=== PATIENT | male | born 1970 | race Caucasian/White ===

== ENCOUNTER → 2018-08-06 | Day surgery (SDC) | payer OTHER ==
--- NOTE | 2018-08-03 09:34 | Diagnostic Imaging Report ---
PROCEDURE: X-RAY CHEST, TWO VIEWS COMPARISON: None. INDICATIONS: PREOPERATIVE CHEST XRAY FOR VASECTOMY FINDINGS: Lungs are well-inflated. No focal consolidation, pleural effusion, or pneumothorax. Cardiomediastinal contour and pulmonary vasculature are within normal limits. No acute osseous abnormality. CONCLUSION: No acute thoracic abnormality. Dictated by: Skyler Bhatti M.D. on 08/03/2018 at 9:42 Electronically approved by: Skyler Bhatti M.D. on 08/03/2018 at 9:42
[2018-08-03 09:45] LABS: BASOPHILS # (AUTO) 0.1 (0.0-0.1); BASOPHILS % 0.6 % (0.0-1.0); EOSINOPHILS # (AUTO) 0.2 (0.0-0.4); EOSINOPHILS % 2.9 % (0.0-6.0); HEMATOCRIT 44.8 % (38.2-49.6); LYMPHOCYTES # (AUTO) 2.1 (1.0-3.2); LYMPHOCYTES % 25.4 % (18.0-39.1); MEAN CORPUSCULAR HEMOGLOBIN 26.1 pg (28-32); MEAN CORPUSCULAR HGB CONC 31.3 g/dL (31-35); MEAN CORPUSCULAR VOLUME 83.6 fL (81-99); MONOCYTES # (AUTO) 0.6 (0.2-0.8); MONOCYTES % 7.5 % (4.4-11.3); NEUTROPHILS # (AUTO) 5.2 (2.1-6.9); NEUTROPHILS % 63.1 % (38.7-80.0); PLATELET COUNT 287 x10e3/uL (140-360); RED BLOOD COUNT 5.36 x10e6/uL (4.3-5.7); RED CELL DISTRIBUTION WIDTH 14.9 % (11.7-14.4)
[2018-08-03 10:10] LABS: INR 1.08
[~2018-08-06] MED LIST: ASPIR 8181 MG PO; BUPIVACAINE 0.25% 30ML SDV INJ ONE; CEFTRIAXONE SOD 1 GM VIAL ONE; DEXAMETHASONE SOD PHOS INJ 4 MG/ML VIAL ONE; EFFIENT10 MG PO; FENTANYL CITRATE/PF 100MCG/2 ML INJ ONE; HYDROCODON-ACE1 EA12; LEXAPRO PO; LIDOCAINE HCL 2% LOCAL INJ 5 ML SDV VIAL INJ ONE; MIDAZOLAM HCL 2 MG/2 ML VIAL ONE; ONDANSETRON HCL INJ 2 MG/ML VIAL ONE; PLAVIX75 MG PO; PROPOFOL IV EMULSION 10 MG/ML 20 ML VIAL ONE; SEVOFLURANE INHAL SOLN 250 ML PEN BTL ONE; XARELTO PO; XARELTO15 MG PO; XARELTO20 MG PO
[2018-08-06 10:20] VITALS: BP 130/92
--- NOTE | 2018-08-06 10:34 | Operative Report ---
DATE OF PROCEDURE: August 06, 2018 PREOPERATIVE DIAGNOSIS: Desire for permanent sterilization. POSTOPERATIVE DIAGNOSIS: Desire for permanent sterilization. OPERATIVE PROCEDURE PERFORMED: Bilateral segmental vasectomy. ANESTHESIA: General anesthesia. ESTIMATED BLOOD LOSS: Minimal. INDICATIONS: Mr. Ben Redd is a 47-year-old gentleman with a prior history of pulmonary emboli and left DVT, who now presents for bilateral segment vasectomy for permanent sterilization. PROCEDURE IN DETAIL: Patient was brought into the operating room and placed in the supine position. After administration of general anesthesia, was prepped and draped in the usual sterile fashion. A small incision was made in the right hemiscrotum, and the vas was dissected from the surrounding structures. The vas was clipped proximally and distally with titanium clips and an intervening section of approximately 1 cm in length was removed. The cut edges of the vas was fulgurated using electrocautery device, and allowed to retract back into the scrotum. Prior to retraction, both edges were infiltrated with 0.25% plain Marcaine. The skin was closed with a figure-of-8 of 0 chromic suture. A similar procedure was performed on the contralateral side. Again, a section of vas 1 cm in length was removed. Titanium clips were placed proximally and distally, and the cut edges of the clips fulgurated using the electrocautery device. Again a figure-of-8 0 chromic suture was placed in the skin. The patient was transferred to a bed and anesthesia was reversed. He was transferred to the postanesthesia care unit in good condition. Of note, the needle and instrument count were correct at the conclusion of the case. Job#: [id number] OUSMANE
--- OUTSIDE RECORDS SUMMARY | 2018-08-11 12:56 | XMS REPORT | Clinical Summary ---
Author Author Connor [facility] Organization [facility] Address Unknown Phone Unavailable Care Team Providers Care Video News Editor Name Role Phone Ike Vidal MD PCP Allergies Active Allergy Reactions Severity Noted Date Comments Latex Rash Low 08/12/2016 Sulfa (Sulfonamide Hives Medium 08/12/2016 Antibiotics) Current Medications Prescription Sig. Disp. Refills Start End Date Status Date clopidogrel (PLAVIX) 75 TAKE 1 TABLET BY MOUTH 90 tablet 0 09/16/20 Active mg tablet EVERY DAY 17 diazePAM (VALIUM) 5 MG TK 1 - 2 TS PO BID PRN 1 02/17/20 Active tablet FOR 30 DAYS 18 escitalopram (LEXAPRO) 10 04/13/20 Active MG tablet 18 temazepam (RESTORIL) 15 TAKE 1 C PO HS PRN 2 04/09/20 Active mg capsule 18 clopidogrel (PLAVIX) 75 Take 75 mg by mouth every 09/16/20 Discontin mg tablet evening. 17 ued dexlansoprazole Take 60 mg by mouth 08/21/20 Discontin (DEXILANT) 60 mg capsule daily. 17 ued rivaroxaban (XARELTO) 20 Take 20 mg by mouth 2 04/18/20 Discontin mg tablet (two) times a day. 1 18 ued tablet 2x a day clopidogrel (PLAVIX) 75 Take 1 tablet (75 mg 90 tablet 3 09/16/20 12/15/19 mg tabletIndications: total) by mouth daily for 17 18 May-Thurner syndrome 90 days. rivaroxaban (XARELTO) 20 Take 20 mg by mouth 05/04/20 Discontin mg tablet daily. 18 ued traMADol (ULTRAM) 50 mg Take 1 tablet (50 mg 30 tablet 0 04/18/20 04/25/20 tablet total) by mouth every 6 18 18 (six) hours as needed for moderate pain for up to 7 days. docusate sodium (COLACE) Take 1 capsule (100 mg 60 capsule 0 04/18/20 05/18/20 100 MG capsule total) by mouth 2 (two) 18 18 times a day as needed for constipation for up to 30 days. rivaroxaban (XARELTO) 20 Take 1 tablet (20 mg 30 tablet 6 05/04/20 06/03/20 mg tablet total) by mouth daily for 18 18 30 days. Active Problems Problem Noted Date Anticoagulated on heparin 04/17/2018 s/p BLE venogram, bilat iliac+IVC balloon angioplasty, angiojet 04/17/2018 At high risk for bleeding 04/16/2018 Thrombosis of R Iliac Vein stents 04/15/2018 s/p RLE venogram and thrombolysis with EKOS 04/15/2018 Chronic anticoagulation with Xarelto 04/15/2018 Chronic anemia 04/15/2018 Edema of right lower extremity 04/13/2018 Ventricular ectopy 07/03/2017 Pain and swelling of right lower leg 01/30/2017 Postural dizziness with presyncope 11/18/2016 Chest pain 11/18/2016 May-Thurner syndrome 08/12/2016 Last Assessment & Plan: s/p angiojet R CIV and EIV w/ thromb; 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 CTA reviewed by me looks good with good flow and patent stents. Plan for continue normal activity. Refill of tramadol given. RTC in 1 year with arterial US. Pain of left lower extremity 08/12/2016 Atherosclerosis of arteries of extremities (HCC) 08/12/2016 Post-phlebitic syndrome 10/27/2013 Overview: B iliac vein and IVC recanalization and stenting 2015 Encounters Date Type Specialty Care Team Description 07/07/2018 Telephone Cardiovascular Tiffany Garcia RN 05/04/2018 Office Visit Cardiovascular Dane Nieves MD Acute deep vein thrombosis (DVT) of distal vein of both lower extremities (Primary Dx) 05/04/2018 Orders Only Cardiovascular Tiffany Garcia RN 05/01/2018 Refill Cardiovascular Lenin Reyes MD 04/17/2018 Procedure Pass Cardiothoracic Surgery 04/17/2018 Surgery Cardiothoracic Surgery Dane Nieves MD Bilateral lower extremity venogram, bilateral iliac and IVC balloon angioplast, angiojet 04/16/2018 Anesthesia Cardiothoracic Surgery Paula Pardo Event 04/15/2018 Anesthesia Cardiothoracic Surgery Reba Steen MD Event 04/15/2018 Procedure Pass Cardiothoracic Surgery 04/15/2018 Surgery Cardiothoracic Surgery Dane Nieves MD RIGHT LOWER EXTREMITY VENOGRAM 04/13/2018 Hospital Cardiology Dane Nieves MD - Encounter 04/18/2018 04/13/2018 Office Visit Cardiovascular Dane Nieves MD Venous thrombosis (Primary Dx) 04/13/2018 Telephone Cardiovascular Carlos Hermosillo 04/05/2018 Refill Cardiovascular Lenin Reyes MD 09/16/2017 Orders Only Cardiovascular Natalie Michael RN May-Thurner syndrome (Primary Dx) 09/16/2017 Refill Cardiovascular Lenin Reyes MD 09/06/2017 Refill Cardiovascular Lenin Reyes MD 08/21/2017 Office Visit Cardiovascular Lenin Reyes MD May-Thurner syndrome (Primary Dx) 08/21/2017 [facility] Radiology Lenin Reyes MD Chronic deep vein Encounter thrombosis (DVT) of proximal vein of both lower extremities 08/21/2017 Orders Only Cardiovascular Natalie Michael RN Chronic deep vein thrombosis (DVT) of non-extremity vein (Primary Dx) after 08/05/2017 Family History Medical History Relation Name Comments Hypertension Father Diabetes Mother Relation Name Status Comments Father Mother Social History Tobacco Use Types Packs/Day Years Used Date Never Smoker Smokeless Tobacco: Never Used Alcohol Use Drinks/Week oz/Week Comments No Sex Assigned at Date Recorded Not on file Last Filed Vital Signs Vital Sign Reading Time Taken Blood Pressure 138/89 05/04/2018 10:49 AM CDT Pulse 69 05/04/2018 10:49 AM CDT Temperature 36.8 C (98.3 F) 05/04/2018 10:49 AM CDT Respiratory Rate 17 05/04/2018 10:49 AM CDT Oxygen Saturation 97% 04/18/2018 12:11 PM CDT Inhaled Oxygen - - Concentration Weight 67.6 kg (149 lb) 05/04/2018 10:49 AM CDT Height 167.6 cm (5' 6") 05/04/2018 10:49 AM CDT Body Mass Index 24.05 05/04/2018 10:49 AM CDT Plan of Treatment Date Type Specialty Care Team Description 05/03/2019 Office Visit Cardiovascular Dane Nieves MD [address] [address] Health Maintenance Due Date Last Done Comments INFLUENZA VACCINE 05/27/2018 Implants Implanted Type Area External Grinder Tool Device Expiration Model / Identifier Date Serial / Lot [place] Large Diameter [employer]iance - IPM BARD PERIPHERAL [id number] / [id number] [employer]PL[employer] / Implanted: Qty: 3 on 04/17/2018 by DEVICES Dane Nieves MD Catheter [employer]iance 8fr 75x4cm 16mm [place] Surgical N/A: N/A BARD PERIPHERAL [id number] / - [id number] Implants; VASCULAR / Implanted: 01/31/2017 (Quantity not Expanders; on file) Extenders; Surgical Wires Catheter [employer] 8fr 75x4cm 16mm [place] Surgical N/A: N/A BARD PERIPHERAL [id number] / - [id number] Implants; VASCULAR / Implanted: 01/31/2017 (Quantity not Expanders; on file) Extenders; Surgical Wires Catheter [employer] Compliance 4x75cm 12mm [employer] - Surgical N/A: N/A BARD PERIPHERAL 01/24/2021 [id number] / [id number] Implants; VASCULAR / Implanted: 04/17/2018 (Quantity not Expanders; [id number] on file) Extenders; Surgical Wires Catheter [employer] Compliance [place] 7fr [id number] Surgical N/A: N/A [facility] PERIPHERAL [id number] 12mm 0.035in H-Pres - [id number] Implants; INTERVENTION [id number] / Implanted: 04/17/2018 (Quantity not Expanders; VASCULAR HARSHIL / on file) Extenders; Surgical Wires Device Endovasclr Intlgnt Drug Delv [id number] Cath 5.2fr [id number] [employer] / Implanted: Qty: 2 on 04/15/2018 by / Dane Nieves MD Procedures Procedure Name Priority Date/Time Associated Diagnosis Comments ECG 12-LEAD Routine 04/18/2018 Results for this 7:49 AM CDT procedure are in the results section. CBC HEMOGRAM Routine 04/18/2018 Results for this 3:41 AM CDT procedure are in the results section. ZZESTIMATED GFR Routine 04/18/2018 Results for this 12:00 AM CDT procedure are in the results section. PHOSPHORUS LEVEL Routine 04/18/2018 Results for this 12:00 AM CDT procedure are in the results section. IONIZED CALCIUM Routine 04/18/2018 Results for this 12:00 AM CDT procedure are in the results section. MAGNESIUM LEVEL Routine 04/18/2018 Results for this 12:00 AM CDT procedure are in the results section. BASIC METABOLIC PANEL Routine 04/18/2018 Results for this 12:00 AM CDT procedure are in the results section. PARTIAL THROMBOPLASTIN Timed 04/17/2018 Results for this TIME (PTT) 11:20 PM CDT procedure are in the results section. PARTIAL THROMBOPLASTIN Routine 04/17/2018 Results for this TIME (PTT) 4:59 PM CDT procedure are in the results section. ZZESTIMATED GFR Routine 04/17/2018 Results for this 2:27 PM CDT procedure are in the results section. MAGNESIUM LEVEL Routine 04/17/2018 Results for this 2:27 PM CDT procedure are in the results section. PHOSPHORUS LEVEL Routine 04/17/2018 Results for this 2:27 PM CDT procedure are in the results section. BASIC METABOLIC PANEL Routine 04/17/2018 Results for this 2:27 PM CDT procedure are in the results section. ZZESTIMATED GFR Routine 04/17/2018 Results for this 12:47 PM CDT procedure are in the results section. MAGNESIUM LEVEL Routine 04/17/2018 Results for this 12:47 PM CDT procedure are in the results section. PHOSPHORUS LEVEL Routine 04/17/2018 Results for this 12:47 PM CDT procedure are in the results section. BASIC METABOLIC PANEL Routine 04/17/2018 Results for this 12:47 PM CDT procedure are in the results section. POC GLUCOSE Routine 04/17/2018 Results for this 12:22 PM CDT procedure are in the results section. XR CHEST 1 VW PORTABLE Routine 04/17/2018 Results for this 10:49 AM CDT procedure are in the results section. HEMOGLOBIN & HEMATOCRIT Routine 04/17/2018 Results for this 10:39 AM CDT procedure are in the results section. POC GLUCOSE Routine 04/17/2018 Results for this 10:20 AM CDT procedure are in the results section. IN AN ELECTIVE Routine 04/17/2018 ENDOTRACHEAL AIRWAY 8:01 AM CDT Procedure Note - Kimo Correa, PIPE ORGAN TECHNICIAN - 04/17/2018 8:01 AM CDT Airway Date/Time: 04/17/2018 7:45 AM Performed by: KIMO CORREA Authorized by: MEHDI MYERS Location: OR Urgency: Elective Difficult Airway: No Anesthesio logist: MEHDI MYERS Resident/C RNA/AA: KIMO CORREA Other Anesthesia Staff: JASMIN RAND Performed by: other anesthesia staff Preoxygena mia with 100% O2: Yes Mask Ventilatio n: Easy mask Final Airway Type: Endotrache al airway Final Endotrache al Airway: ETT Cuffed: Yes Technique Used: Direct laryngosco py Devices/Me thods Used in Placement: Intubatin g stylet Insertion Site: Oral Blade Type: Garcia Laryngosco pe Blade/Vide olaryngosc ope Blade Size: 2 ETT Size (mm): 8.0 Cuff at minimum occlusion pressure: Yes Measured from: Lips ETT to Lips (cm): 23 Placement Verified by: CO2 detection, direct visualizat ion and equal breath sounds Laryngosco pic view: Grade I - full view of glottis Rapid Sequence Induction (RSI): No Modified RSI: No Number of Attempts at Approach: 1 POC GLUCOSE Routine 04/17/2018 Results for this 7:22 AM CDT procedure are in the results section. ECG 12-LEAD Routine 04/17/2018 Results for this 5:55 AM CDT procedure are in the results section. PARTIAL THROMBOPLASTIN Routine 04/17/2018 Results for this TIME (PTT) 4:05 AM CDT procedure are in the results section. PROTHROMBIN TIME WITH INR Routine 04/17/2018 Results for this 4:05 AM CDT procedure are in the results section. FIBRINOGEN Routine 04/17/2018 Results for this 4:05 AM CDT procedure are in the results section. POC GLUCOSE Routine 04/17/2018 Results for this 3:40 AM CDT procedure are in the results section. FIBRINOGEN Routine 04/17/2018 Results for this 12:15 AM CDT procedure are in the results section. PARTIAL THROMBOPLASTIN Routine 04/17/2018 Results for this TIME (PTT) 12:15 AM CDT procedure are in the results section. PROTHROMBIN TIME WITH INR Routine 04/17/2018 Results for this 12:15 AM CDT procedure are in the results section. HC COMPLETE BLD COUNT Routine 04/17/2018 Results for this W/AUTO DIFF 12:15 AM CDT procedure are in the results section. PHOSPHORUS LEVEL Routine 04/17/2018 Results for this 12:10 AM CDT procedure are in the results section. IONIZED CALCIUM Routine 04/17/2018 Results for this 12:10 AM CDT procedure are in the results section. MAGNESIUM LEVEL Routine 04/17/2018 Results for this 12:10 AM CDT procedure are in the results section. ZZESTIMATED GFR Routine 04/17/2018 Results for this 12:10 AM CDT procedure are in the results section. BASIC METABOLIC PANEL Routine 04/17/2018 Results for this 12:10 AM CDT procedure are in the results section. POC GLUCOSE Routine 04/16/2018 Results for this 11:40 PM CDT procedure are in the results section. POC GLUCOSE Routine 04/16/2018 Results for this 7:42 PM CDT procedure are in the results section. ZZESTIMATED GFR Routine 04/16/2018 Results for this 5:06 PM CDT procedure are in the results section. MAGNESIUM LEVEL Routine 04/16/2018 Results for this 5:06 PM CDT procedure are in the results section. PHOSPHORUS LEVEL Routine 04/16/2018 Results for this 5:06 PM CDT procedure are in the results section. BASIC METABOLIC PANEL Routine 04/16/2018 Results for this 5:06 PM CDT procedure are in the results section. PARTIAL THROMBOPLASTIN Routine 04/16/2018 Results for this TIME (PTT) 5:06 PM CDT procedure are in the results section. PROTHROMBIN TIME WITH INR Routine 04/16/2018 Results for this 5:06 PM CDT procedure are in the results section. FIBRINOGEN Routine 04/16/2018 Results for this 5:06 PM CDT procedure are in the results section. HC COMPLETE BLD COUNT Routine 04/16/2018 Results for this W/AUTO DIFF 5:06 PM CDT procedure are in the results section. POC GLUCOSE Routine 04/16/2018 Results for this 3:57 PM CDT procedure are in the results section. FIBRINOGEN Routine 04/16/2018 Results for this 1:37 PM CDT procedure are in the results section. PARTIAL THROMBOPLASTIN Routine 04/16/2018 Results for this TIME (PTT) 1:37 PM CDT procedure are in the results section. PROTHROMBIN TIME WITH INR Routine 04/16/2018 Results for this 1:37 PM CDT procedure are in the results section. HC COMPLETE BLD COUNT Timed 04/16/2018 Results for this W/AUTO DIFF 1:35 PM CDT procedure are in the results section. POC GLUCOSE Routine 04/16/2018 Results for this 12:25 PM CDT procedure are in the results section. FIBRINOGEN Timed 04/16/2018 Results for this 7:34 AM CDT procedure are in the results section. POC GLUCOSE Routine 04/16/2018 Results for this 7:30 AM CDT procedure are in the results section. ECG 12-LEAD Routine 04/16/2018 Results for this 6:45 AM CDT procedure are in the results section. XR CHEST 1 VW PORTABLE Routine 04/16/2018 Results for this 6:36 AM CDT procedure are in the results section. POC GLUCOSE Routine 04/16/2018 Results for this 3:58 AM CDT procedure are in the results section. FIBRINOGEN Routine 04/16/2018 Results for this 1:00 AM CDT procedure are in the results section. ZZESTIMATED GFR Routine 04/16/2018 Results for this 1:00 AM CDT procedure are in the results section. PHOSPHORUS LEVEL Routine 04/16/2018 Results for this 1:00 AM CDT procedure are in the results section. MAGNESIUM LEVEL Routine 04/16/2018 Results for this 1:00 AM CDT procedure are in the results section. BASIC METABOLIC PANEL Routine 04/16/2018 Results for this 1:00 AM CDT procedure are in the results section. HC COMPLETE BLD COUNT Routine 04/16/2018 Results for this W/AUTO DIFF 1:00 AM CDT procedure are in the results section. IONIZED CALCIUM Routine 04/16/2018 Results for this 1:00 AM CDT procedure are in the results section. PARTIAL THROMBOPLASTIN Routine 04/16/2018 Results for this TIME (PTT) 1:00 AM CDT procedure are in the results section. POC GLUCOSE Routine 04/15/2018 Results for this 11:57 PM CDT procedure are in the results section. XR CHEST 1 VW PORTABLE Routine 04/15/2018 Results for this 8:07 PM CDT procedure are in the results section. POC GLUCOSE Routine 04/15/2018 Results for this 7:54 PM CDT procedure are in the results section. PARTIAL THROMBOPLASTIN Timed 04/15/2018 Results for this TIME (PTT) 7:30 PM CDT procedure are in the results section. PROTHROMBIN TIME WITH INR Timed 04/15/2018 Results for this 7:30 PM CDT procedure are in the results section. HC COMPLETE BLD COUNT Timed 04/15/2018 Results for this W/AUTO DIFF 7:30 PM CDT procedure are in the results section. FIBRINOGEN Timed 04/15/2018 Results for this 7:30 PM CDT procedure are in the results section. ZZESTIMATED GFR Timed 04/15/2018 Results for this 7:21 PM CDT procedure are in the results section. IONIZED CALCIUM Timed 04/15/2018 Results for this 7:21 PM CDT procedure are in the results section. PHOSPHORUS LEVEL Timed 04/15/2018 Results for this 7:21 PM CDT procedure are in the results section. MAGNESIUM LEVEL Timed 04/15/2018 Results for this 7:21 PM CDT procedure are in the results section. BASIC METABOLIC PANEL Timed 04/15/2018 Results for this 7:21 PM CDT procedure are in the results section. ECG 12-LEAD Routine 04/15/2018 Results for this 7:20 PM CDT procedure are in the results section. IN AN ELECTIVE Routine 04/15/2018 Results for this SUPRAGLOTTIC AIRWAY 5:18 PM CDT procedure are in the results section. PREPARE RBC Routine 04/15/2018 Results for this 3:00 AM CDT procedure are in the results section. PARTIAL THROMBOPLASTIN Routine 04/15/2018 Results for this TIME (PTT) 3:00 AM CDT procedure are in the results section. HC COMPLETE BLD COUNT Routine 04/15/2018 Results for this W/AUTO DIFF 3:00 AM CDT procedure are in the results section. TYPE AND SCREEN Routine 04/15/2018 Results for this 3:00 AM CDT procedure are in the results section. ZZESTIMATED GFR Routine 04/15/2018 Results for this 12:00 AM CDT procedure are in the results section. BASIC METABOLIC PANEL Routine 04/15/2018 Results for this 12:00 AM CDT procedure are in the results section. PARTIAL THROMBOPLASTIN Timed 04/14/2018 Results for this TIME (PTT) 3:54 PM CDT procedure are in the results section. US DUPLEX VENOUS LOWER STAT 04/14/2018 Results for this EXTREMITY BILATERAL 8:55 AM CDT procedure are in the results section. ZZESTIMATED GFR Routine 04/14/2018 Results for this 4:43 AM CDT procedure are in the results section. BASIC METABOLIC PANEL Routine 04/14/2018 Results for this 4:43 AM CDT procedure are in the results section. CBC HEMOGRAM Routine 04/14/2018 Results for this 4:00 AM CDT procedure are in the results section. PARTIAL THROMBOPLASTIN Routine 04/14/2018 Results for this TIME (PTT) 4:00 AM CDT procedure are in the results section. CT ANGIOGRAM ABDOMINAL STAT 04/13/2018 Results for this AORTA AND BILATERAL 10:15 PM CDT procedure are in the ILIOFEMORAL RUNOFF W WO results section. CONTRAST PROTHROMBIN TIME WITH INR Routine 04/13/2018 Results for this 6:10 PM CDT procedure are in the results section. PARTIAL THROMBOPLASTIN Routine 04/13/2018 Results for this TIME (PTT) 6:10 PM CDT procedure are in the results section. ZZESTIMATED GFR STAT 04/13/2018 Results for this 5:43 PM CDT procedure are in the results section. MAGNESIUM LEVEL STAT 04/13/2018 Results for this 5:43 PM CDT procedure are in the results section. BASIC METABOLIC PANEL STAT 04/13/2018 Results for this 5:43 PM CDT procedure are in the results section. HC COMPLETE BLD COUNT STAT 04/13/2018 Results for this W/AUTO DIFF 5:43 PM CDT procedure are in the results section. CT ANGIOGRAM ABDOMEN Routine 08/21/2017 Chronic deep vein Results for this PELVIS W AND OR WO 9:56 AM CDT thrombosis (DVT) of procedure are in the CONTRAST proximal vein of both results section. lower extremities ZZESTIMATED GFR Routine 08/21/2017 Results for this 8:26 AM CDT procedure are in the results section. CREATININE LEVEL Routine 08/21/2017 Results for this 8:26 AM CDT procedure are in the results section. after 08/05/2017 Results * ECG 12 lead (04/18/2018 7:49 AM) Only the most recent of 4 results within the time period is included. Ventricular rate 48 [facility] Atrial rate 48 [facility] IN interval 138 [facility] QRSD interval 86 [facility] QT interval 462 [facility] QTC interval 412 [facility] P axis 1 21 [facility] QRS axis 1 71 [facility] T wave axis 49 [facility] EKG impression Sinus bradycardia-Low voltage [facility] QRS-Borderline ECG-In automated comparison with ECG of 17-APR-2018 05:55,-No significant change was found- Performing Organization Address [facility] Phone Number [facility] [address] [place] [address] * CBC hemogram (04/18/2018 3:41 AM) Only the most recent of 2 results within the time period is included. WBC 8.81 4.50 - 11.00 k/uL [facility] DEPARTMENT OF PATHOLOGY AND GENOMIC MEDICINE RBC 3.29 (L) 4.40 - 6.00 m/uL [facility] DEPARTMENT OF PATHOLOGY AND GENOMIC MEDICINE HGB 9.4 (L) 14.0 - 18.0 g/dL [facility] DEPARTMENT OF PATHOLOGY AND GENOMIC MEDICINE HCT 29.0 (L) 41.0 - 51.0 % [facility] DEPARTMENT OF PATHOLOGY AND GENOMIC MEDICINE MCV 88.1 82.0 - 100.0 fL [facility] DEPARTMENT OF PATHOLOGY AND GENOMIC MEDICINE MCH 28.6 27.0 - 34.0 pg [facility] DEPARTMENT OF PATHOLOGY AND GENOMIC MEDICINE MCHC 32.4 31.0 - 37.0 g/dL [facility] DEPARTMENT OF PATHOLOGY AND GENOMIC MEDICINE RDW - SD 43.6 37.0 - 55.0 fL [facility] DEPARTMENT OF PATHOLOGY AND GENOMIC MEDICINE MPV 11.4 8.8 - 13.2 fL [facility] DEPARTMENT OF PATHOLOGY AND GENOMIC MEDICINE Platelet count 126 (L) 150 - 400 k/uL [facility] DEPARTMENT OF PATHOLOGY AND GENOMIC MEDICINE Nucleated RBC 0.00 /100 WBC [facility] DEPARTMENT OF PATHOLOGY AND GENOMIC MEDICINE Specimen Blood Performing Organization Address [facility] Phone Number [facility] DEPARTMENT OF [address] [place] [address] PATHOLOGY AND GENOMIC MEDICINE * Estimated GFR (04/18/2018) Only the most recent of 11 results within the time period is included. GFR Non Af Amer 59 (A) mL/min/1.73 m2 [facility] DEPARTMENT OF PATHOLOGY AND GENOMIC MEDICINE GFR Af Amer 71 mL/min/1.73 m2 [facility] DEPARTMENT OF Comment: PATHOLOGY AND Chronic kidney disease: <60 GENOMIC MEDICINE mL/min/1.73m2 Kidney failure: <15 mL/min/1.73m2 The estimated GFR is calculated from the IDMS-traceable Modification of Diet in Renal Disease Equation. The accuracy of the calculation is poor when the creatinine is normal. Calculated values >90 mL/min/1.73m2 are not reported. This equation has not been validated in children (<18 years), women, the elderly (>70 years), or ethnic groups other than Caucasians and Americans. Specimen Plasma specimen Performing Organization Address City/[facility] [place] [address] PATHOLOGY AND [facility] * Phosphorus level (04/18/2018) Only the most recent of 7 results within the time period is included. Phosphorus 3.0 2.4 - 4.5 mg/dL [facility] DEPARTMENT PATHOLOGY AND [facility] Specimen Plasma specimen Performing Organization Address [facility] [place] [address] PATHOLOGY AND [facility] * Magnesium level (04/18/2018) Only the most recent of 8 results within the time period is included. Magnesium 1.9 1.6 - 2.6 mg/dL [facility] DEPARTMENT PATHOLOGY AND [facility] Specimen Plasma specimen Performing Organization Address [facility] [place] [address] PATHOLOGY AND [facility] * Ionized calcium (04/18/2018) Only the most recent of 4 results within the time period is included. pH 7.48 [facility] DEPARTMENT OF PATHOLOGY AND [facility]INE Ionized calcium 1.08 (L) 1.11 - 1.32 mmol/L [facility] DEPARTMENT OF PATHOLOGY AND [facility] Specimen Plasma specimen Performing Organization Address [facility] [place] [address] PATHOLOGY AND [facility] * Basic metabolic panel (04/18/2018) Only the most recent of 10 results within the time period is included. Sodium 138 135 - 148 mEq/L [facility] DEPARTMENT OF PATHOLOGY AND GENOMIC MEDICINE Potassium 4.1 3.5 - 5.0 mEq/L [facility] DEPARTMENT OF PATHOLOGY AND GENOMIC MEDICINE Chloride 104 98 - 112 mEq/L [facility] DEPARTMENT OF PATHOLOGY AND GENOMIC MEDICINE CO2 23 (L) 24 - 31 mEq/L [facility] DEPARTMENT OF PATHOLOGY AND GENOMIC MEDICINE Anion gap 11@ANIO 7 - 15 mEq/L [facility] DEPARTMENT OF PATHOLOGY AND GENOMIC MEDICINE BUN 12 6 - 20 mg/dL [facility] DEPARTMENT OF PATHOLOGY AND GENOMIC MEDICINE Creatinine 1.3 (H) 0.7 - 1.2 mg/dL [facility] DEPARTMENT OF PATHOLOGY AND GENOMIC MEDICINE Glucose 139 (H) 65 - 99 mg/dL [facility] DEPARTMENT OF PATHOLOGY AND GENOMIC MEDICINE Calcium 7.9 (L) 8.3 - 10.2 mg/dL [facility] DEPARTMENT OF PATHOLOGY AND GENOMIC MEDICINE Specimen Plasma specimen Performing Organization Address City/[facility] [place] [place] [address] PATHOLOGY AND GENOMIC MEDICINE * Partial thromboplastin time, activated (04/17/2018 11:20 PM) Only the most recent of 12 results within the time period is included. PTT 91.6 (H) 23.0 - 36.0 sec [facility] DEPARTMENT OF Comment: PATHOLOGY AND PTT therapeutic range for [facility] MEDICINE unfractionated heparin is 61.0-112.0 seconds which corresponds to Anti-Xa 0.3-0.7 U/ml. Specimen Blood Performing Organization Address [facility] [place] [address] PATHOLOGY AND [employer] MEDICINE * POC glucose (04/17/2018 12:22 PM) Only the most recent of 12 results within the time period is included. POC glucose 106 (H) 65 - 99 mg/dL [facility] DEPARTMENT OF Comment: PATHOLOGY AND [facility] Notified RN GENOMIC MEDICINE Meter ID: [id number] Asphalt Coater: Mor Toribio Performing Organization Address [facility] Phone Number [facility] [place] [address] PATHOLOGY AND GENOMIC MEDICINE * XR Chest 1 Vw Portable (04/17/2018 10:49 AM) Only the most recent of 3 results within the time period is included. Narrative Performed At EXAMINATION: XR CHEST 1 VW PORTABLE RADIANT INDICATION: Post-op surgery COMPARISON: Most recent prior IMPRESSION: Stable appearance of the heart and mediastinum. Minimal pulmonary gastric congestion without a focal airspace consolidation. No visible effusion or pneumothorax. [facility]-[id number] Procedure Note Interface, Radiology Results Incoming - 04/17/2018 11:04 AM CDT EXAMINATION: XR CHEST 1 VW PORTABLE INDICATION: Post-op surgery COMPARISON: Most recent prior IMPRESSION: Stable appearance of the heart and mediastinum. Minimal pulmonary gastric congestion without a focal airspace consolidation. No visible effusion or pneumothorax. [facility]-[id number] Performing Organization Address City/[facility]/[place] [address] * Hemoglobin & hematocrit (04/17/2018 10:39 AM) HGB 10.6 (L) 14.0 - 18.0 g/dL [facility] DEPARTMENT OF PATHOLOGY AND GENOMIC MEDICINE HCT 31.8 (L) 41.0 - 51.0 % [facility] DEPARTMENT OF PATHOLOGY AND GENOMIC MEDICINE Specimen Blood Performing Organization Address City/[facility] [place] [place] [address] PATHOLOGY AND GENOMIC MEDICINE * Prothrombin time with INR (04/17/2018 4:05 AM) Only the most recent of 6 results within the time period is included. Prothrombin time 16.3 (H) 12.0 - 15.0 sec [facility] DEPARTMENT OF PATHOLOGY AND GENOMIC MEDICINE INR 1.3 [facility] DEPARTMENT OF Comment: PATHOLOGY AND The International Normalized GENOMIC MEDICINE Ratio (INR) is a therapeutic monitoring tool for patients who are stable on oral anticoagulant therapy. An INR of 2.0-3.0 is suggested for deep vein thrombosis/pulmonary embolism. Specimen Blood Performing Organization Address [facility] Phone Number [facility] [place] [address] PATHOLOGY AND GENOMIC MEDICINE * Fibrinogen (04/17/2018 4:05 AM) Only the most recent of 7 results within the time period is included. Fibrinogen 259 200 - 450 mg/dL [facility] DEPARTMENT OF PATHOLOGY AND GENOMIC MEDICINE Specimen Blood Performing Organization Address City/[facility]/Zipcode Phone Number [facility] [place] [address] PATHOLOGY AND GENOMIC MEDICINE * CBC with platelet and differential (04/17/2018 12:15 AM) Only the most recent of 7 results within the time period is included. WBC 5.31 4.50 - 11.00 k/uL [facility] DEPARTMENT OF PATHOLOGY AND GENOMIC MEDICINE RBC 4.03 (L) 4.40 - 6.00 m/uL [facility] DEPARTMENT OF PATHOLOGY AND GENOMIC MEDICINE HGB 11.2 (L) 14.0 - 18.0 g/dL [facility] DEPARTMENT OF PATHOLOGY AND GENOMIC MEDICINE HCT 35.7 (L) 41.0 - 51.0 % [facility] DEPARTMENT OF PATHOLOGY AND GENOMIC MEDICINE MCV 88.6 82.0 - 100.0 fL [facility] DEPARTMENT OF PATHOLOGY AND GENOMIC MEDICINE MCH 27.8 27.0 - 34.0 pg [facility] DEPARTMENT OF PATHOLOGY AND GENOMIC MEDICINE MCHC 31.4 31.0 - 37.0 g/dL [facility] DEPARTMENT OF PATHOLOGY AND GENOMIC MEDICINE RDW - SD 44.6 37.0 - 55.0 fL [facility] DEPARTMENT OF PATHOLOGY AND GENOMIC MEDICINE MPV 10.5 8.8 - 13.2 fL [facility] DEPARTMENT OF PATHOLOGY AND GENOMIC MEDICINE Platelet count 174 150 - 400 k/uL [facility] DEPARTMENT OF PATHOLOGY AND GENOMIC MEDICINE Nucleated RBC 0.00 /100 WBC [facility] DEPARTMENT OF PATHOLOGY AND GENOMIC MEDICINE Neutrophils 54.8 39.0 - 69.0 % [facility] DEPARTMENT OF PATHOLOGY AND GENOMIC MEDICINE Lymphocytes 31.3 25.0 - 45.0 % [facility] DEPARTMENT OF PATHOLOGY AND GENOMIC MEDICINE Monocytes 10.5 (H) 0.0 - 10.0 % [facility] DEPARTMENT OF PATHOLOGY AND GENOMIC MEDICINE Eosinophils 2.4 0.0 - 5.0 % [facility] DEPARTMENT OF PATHOLOGY AND GENOMIC MEDICINE Basophils 0.6 0.0 - 1.0 % [facility] DEPARTMENT OF PATHOLOGY AND GENOMIC MEDICINE Immature granulocytes 0.4Comment: "Immature 0.0 - 1.0 % [facility] DEPARTMENT OF granulocytes" (promyelocytes, PATHOLOGY AND myelocytes, metamyelocytes) GENOMIC MEDICINE Specimen Blood Performing Organization Address City/State/Zipcode Phone Number [facility] DEPARTMENT OF [address] [place] [address] PATHOLOGY AND GENOMIC MEDICINE * ANESTHESIA INTUBATION (04/15/2018 5:18 PM) Narrative Performed At Manan Mendoza MD 04/15/20185:20 PM Airway Date/Time: 04/15/2018 5:18 PM Performed by: MANAN MENDOZA Authorized by: DANE NIEVES Location:OR Urgency:Elective Difficult Airway: No Preoxygenated with 100% O2: Yes Mask Ventilation:Easy mask Final Airway Type:Supraglottic airway Final LMA:I-Gel LMA Size:5 Number of Attempts at Approach:1 * Prepare RBC (04/15/2018 3:00 AM) Product name Red Blood Cells -3 Leukored [facility] DEPARTMENT OF PATHOLOGY AND GENOMIC MEDICINE Unit number [id number] [facility] DEPARTMENT OF PATHOLOGY AND GENOMIC MEDICINE Product code [id number] [facility] DEPARTMENT OF PATHOLOGY AND GENOMIC MEDICINE Dispense status Returned to BB not transfused [facility] DEPARTMENT OF PATHOLOGY AND GENOMIC MEDICINE Blood expiration date [facility] DEPARTMENT OF PATHOLOGY AND GENOMIC MEDICINE Blood type code 6200 [facility] DEPARTMENT OF PATHOLOGY AND GENOMIC MEDICINE Blood type A POSITIVE [facility] DEPARTMENT OF PATHOLOGY AND GENOMIC MEDICINE Product name Red Blood Cells -3 Leukored [facility] DEPARTMENT OF PATHOLOGY AND GENOMIC MEDICINE Unit number [id number] [facility] DEPARTMENT OF PATHOLOGY AND GENOMIC MEDICINE Product code [id number] [facility] DEPARTMENT OF PATHOLOGY AND GENOMIC MEDICINE Dispense status Returned to BB not transfused [facility] DEPARTMENT OF PATHOLOGY AND GENOMIC MEDICINE Blood expiration date [facility] DEPARTMENT OF PATHOLOGY AND GENOMIC MEDICINE Blood type code 6200 [facility] DEPARTMENT OF PATHOLOGY AND GENOMIC MEDICINE Blood type A POSITIVE [facility] DEPARTMENT OF PATHOLOGY AND GENOMIC MEDICINE Performing Organization Address City/[facility] Phone Number [facility] [place] [address] PATHOLOGY AND GENOMIC MEDICINE * Type and screen (04/15/2018 3:00 AM) ABO grouping A [facility] DEPARTMENT OF PATHOLOGY AND GENOMIC MEDICINE Rh type POS [facility] DEPARTMENT OF PATHOLOGY AND GENOMIC MEDICINE Antibody screen (gel) NEG [facility] DEPARTMENT OF PATHOLOGY AND GENOMIC MEDICINE Specimen Blood Performing Organization Address [facility] Phone Number [facility] [place] [address] PATHOLOGY AND GENOMIC MEDICINE * Pv duplex venous lower extremity (04/14/2018 8:55 AM) Narrative Performed At [facility] Lower Extremity Venous Report [address] [place] [address] Pat.Name:LINDSEY MATAMOROS Pat.ID:[id number] St.Date: 04/14/2018 Refer.MD:DANE NIEVES MD Exam Time: 8:09:00 AMStudy Type:LE Venous Height:66inWeight:150lb BSA: 1.77 m2 DOBAge:1970,47Y Sex: MALESonogrphr: CECILLE Garcia, SRINIVAS Pat. 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 Procedures:Colorflow, Grayscale/2D, Pulsed wave Doppler Race:C SUMMARY: DUPLEX SCAN OBSERVATIONS Deep VeinsSuperficial Veins RightLeft RightLeft EIV Patent NormalGSV (prox) PatentNormal CFV Patent Normal (above knee) Femoral Patent Chronic GSV (dist) Normal Normal Profunda Patent Normal (below knee) Popliteal Patent Normal PT (prox) Patent NormalSSV Not Visualized Not Visualized PT (dist) Patent Normal Peroneal Patent Normal RIGHT: There is normal compressibility with no evidence of echogenic material noted within the lumen of the visualized veins.Although there is reduced colorflow, Doppler waveforms demonstrates an absence of spontaneous flow and phasicity of flow with respiration suggestive of a more proximal obstruction. LEFT: The proximal superficial femoral vein is partially compressible with evidence of heterogenous echogenic material noted within the vessel lumen; colorflow and Doppler signals are normal. The remaining visualized veins patent and compressible with phasic and spontaneous flow present. Incidental finding:Absent colorflow and Doppler signals detected within the stent in right common iliac vein is suggestive of obstructive deep venous thrombosis in the common iliac vein. PRELIMINARY FINDINGS 1. Patent and compressible veins noted in the right lower extremity; however Doppler waveforms demonstrates an absence of spontaneous flow and phasicity of flow with respiration suggestive of a more proximal obstruction. 2. Partial, chronic deep venous thrombosis if the left superficial femoral vein. 3. Absent colorflow and Doppler signals detected within the stent in right common iliac vein is suggestive of obstructive deep venous thrombosis in the common iliac vein. Preliminary results given to Damien DONIS at 13:33 on 04/14/18. PHYSICIAN INTERPRETATION Venous examination of the both lower extremities demonstrated a partial, chronic deep venous thrombosis if the left superficial femoral vein and a potential proximal obstruction: deep venous thrombosis in the stented right comon iliac vein. Signed 04/14/2018 03:12 PM Montez Yuan MD, RPVI Procedure Note Interface, Radiology Results In - 04/14/2018 3:12 PM CDT [facility] Lower Extremity Venous Report [address] [place] [address] Pat.Name: LINDSEY MATAMOROS Pat.ID: [id number] .Date: 04/14/2018 Refer.MD: DANE NIEVES MD Exam Time: 8:09:00 AM Study Type:LE Venous Height: 66in Weight: 150lb BSA: 1.77 m2 Age: 11 1970,47Y Sex: MALE Sonogrphr: CECILLE Garcia RCS Pat. 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 Procedures:Colorflow, Grayscale/2D, Pulsed wave Doppler Race: C SUMMARY: DUPLEX SCAN OBSERVATIONS Deep Veins Superficial Veins Right Left Right Left EIV Patent Normal GSV (prox) Patent Normal CFV Patent Normal (above knee) Femoral Patent Chronic GSV (dist) Normal Normal Profunda Patent Normal (below knee) Popliteal Patent Normal PT (prox) Patent Normal SSV Not Visualized Not Visualized PT (dist) Patent Normal Peroneal Patent Normal RIGHT: There is normal compressibility with no evidence of echogenic material noted within the lumen of the visualized veins. Although there is reduced colorflow, Doppler waveforms demonstrates an absence of spontaneous flow and phasicity of flow with respiration suggestive of a more proximal obstruction. LEFT: The proximal superficial femoral vein is partially compressible with evidence of heterogenous echogenic material noted within the vessel lumen; colorflow and Doppler signals are normal. The remaining visualized veins patent and compressible with phasic and spontaneous flow present. Incidental finding: Absent colorflow and Doppler signals detected within the stent in right common iliac vein is suggestive of obstructive deep venous thrombosis in the common iliac vein. PRELIMINARY FINDINGS 1. Patent and compressible veins noted in the right lower extremity; however Doppler waveforms demonstrates an absence of spontaneous flow and phasicity of flow with respiration suggestive of a more proximal obstruction. 2. Partial, chronic deep venous thrombosis if the left superficial femoral vein. 3. Absent colorflow and Doppler signals detected within the stent in right common iliac vein is suggestive of obstructive deep venous thrombosis in the common iliac vein. Preliminary results given to Damien DONIS at 13:33 on 04/14/18. PHYSICIAN INTERPRETATION Venous examination of the both lower extremities demonstrated a partial, chronic deep venous thrombosis if the left superficial femoral vein and a potential proximal obstruction: deep venous thrombosis in the stented right comon iliac vein. Signed 04/14/2018 03:12 PM Montez Yuan MD, RPVI Performing Organization Address City/State/Zipcode Phone Number [facility] [address] [place] [address] * CTA Abdominal Aorta And Bilateral Iliofemoral Runoff W Wo Contrast (04/13/2018 10:15 PM) Narrative Performed At CT ANGIOGRAM ABDOMINAL AORTA AND BILATERAL ILIOFEMORAL RUNOFF W WO CONTRAST [facility] CLINICAL INDICATION: Hx of bilateral iliac veins DVTstentingthrombolysis and angioplasty presenting with recurrent swelling of RLE TECHNIQUE: CT angiography of the abdomen and pelvis was performed following the intravenous administration of iodinated contrast material and with runoff of the lower extremities with multiplanar reconstructions.In addition, postprocessed 3D MIP and volume rendered images were also performed specifically for CT angiography. CT imaging was performed with iterative reconstruction technique and/or automated exposure control to reduce radiation dose. COMPARISON:08/21/2017. FINDINGS: AORTA: The abdominal aorta is normal in caliber and without evidence of dissection or hemodynamically significant stenosis. MESENTERIC ARTERIES: The celiac axis, superior mesenteric artery, and inferior mesenteric artery are patent without significant stenosis. RENAL ARTERIES:Single bilateral patent renal arteries are present. ------ RIGHT ILIAC ARTERIES:The iliac arteries are normal in caliber and without hemodynamically significant stenosis. RIGHT EXTREMITY RUNOFF:The common femoral, deep femoral, superficial femoral, and popliteal arteries are patent. The anterior tibial, posterior tibial, and peroneal arteries are patent to the level of the ankle. ----- LEFT ILIAC ARTERIES:The iliac arteries are normal in caliber and without hemodynamically significant stenosis. LEFT EXTREMITY RUNOFF:The common femoral, deep femoral, superficial femoral, and popliteal arteries are patent. The anterior tibial, posterior tibial, and peroneal arteries are patent to the level of the ankle. ----- VENOUS FINDINGS: There is redemonstration of a stent within the infrarenal IVC that extends into both common iliac veins and the proximal portions of the external iliac veins. Evaluation of the patency of the IVC and iliac veins is significantly limited secondary to the metallic stent and contrast bolus timing. Allowing for these limitations, there is suggestion of partially occlusive thrombus within both the stented and non-stented portions of the right external iliac vein. The femoral veins are not well opacified with contrast and their patency cannot be evaluated. ----- OTHER FINDINGS: LOWER THORAX: Aside from mild bibasilar atelectasis, the visualized lungs are clear. ABDOMEN AND PELVIS:The liver, gallbladder, spleen, pancreas, and adrenal glands are normal. There is no renal mass or hydronephrosis. The large and small bowel are normal in caliber. There are no inflammatory changes of the bowel. The appendix is normal. The urinary bladder is normal for degree of distention. There is no abdominal or pelvic lymphadenopathy. There is no ascites or pneumoperitoneum. BONES: No acute osseous abnormalities. SOFT TISSUES:There is mild soft tissue edema and swelling of the right lower extremity without an organized soft tissue fluid collection or any soft tissue gas. IMPRESSION: 1. Evaluation of the patency of the IVC and iliac veins is significantly limited secondary to the metallic stent and contrast bolus timing. Allowing for these limitations, there is suggestion of partially occlusive thrombus within both the stented and non-stented portions of the right external iliac vein. 2. The femoral veins are not well opacified with contrast and their patency cannot be evaluated. A lower extremity venous ultrasound is recommended for evaluation of the right and left femoral veins. 3. No arterial stenosis is identified. Findings were discussed with Nurse Austin at 04/13/2018 10:44 PM who verbalized understanding. [facility]-[id number] Procedure Note [facility], Radiology Results Incoming - 04/13/2018 10:[address] ANGIOGRAM ABDOMINAL AORTA AND BILATERAL ILIOFEMORAL RUNOFF W WO CONTRAST CLINICAL INDICATION: Hx of bilateral iliac veins DVT stenting thrombolysis and angioplasty presenting with recurrent swelling of RLE TECHNIQUE: CT angiography of the abdomen and pelvis was performed following the intravenous administration of iodinated contrast material and with runoff of the lower extremities with multiplanar reconstructions. In addition, postprocessed 3D MIP and volume rendered images were also performed specifically for CT angiography. CT imaging was performed with iterative reconstruction technique and/or automated exposure control to reduce radiation dose. COMPARISON: 08/21/2017. FINDINGS: AORTA: The abdominal aorta is normal in caliber and without evidence of dissection or hemodynamically significant stenosis. MESENTERIC ARTERIES: The celiac axis, superior mesenteric artery, and inferior mesenteric artery are patent without significant stenosis. RENAL ARTERIES: Single bilateral patent renal arteries are present. ------ RIGHT ILIAC ARTERIES: The iliac arteries are normal in caliber and without hemodynamically significant stenosis. RIGHT EXTREMITY RUNOFF: The common femoral, deep femoral, superficial femoral, and popliteal arteries are patent. The anterior tibial, posterior tibial, and peroneal arteries are patent to the level of the ankle. ----- LEFT ILIAC ARTERIES: The iliac arteries are normal in caliber and without hemodynamically significant stenosis. LEFT EXTREMITY RUNOFF: The common femoral, deep femoral, superficial femoral, and popliteal arteries are patent. The anterior tibial, posterior tibial, and peroneal arteries are patent to the level of the ankle. ----- VENOUS FINDINGS: There is redemonstration of a stent within the infrarenal IVC that extends into both common iliac veins and the proximal portions of the external iliac veins. Evaluation of the patency of the IVC and iliac veins is significantly limited secondary to the metallic stent and contrast bolus timing. Allowing for these limitations, there is suggestion of partially occlusive thrombus within both the stented and non-stented portions of the right external iliac vein. The femoral veins are not well opacified with contrast and their patency cannot be evaluated. ----- OTHER FINDINGS: LOWER THORAX: Aside from mild bibasilar atelectasis, the visualized lungs are clear. ABDOMEN AND PELVIS: The liver, gallbladder, spleen, pancreas, and adrenal glands are normal. There is no renal mass or hydronephrosis. The large and small bowel are normal in caliber. There are no inflammatory changes of the bowel. The appendix is normal. The urinary bladder is normal for degree of distention. There is no abdominal or pelvic lymphadenopathy. There is no ascites or pneumoperitoneum. BONES: No acute osseous abnormalities. SOFT TISSUES: There is mild soft tissue edema and swelling of the right lower extremity without an organized soft tissue fluid collection or any soft tissue gas. IMPRESSION: 1. Evaluation of the patency of the IVC and iliac veins is significantly limited secondary to the metallic stent and contrast bolus timing. Allowing for these limitations, there is suggestion of partially occlusive thrombus within both the stented and non-stented portions of the right external iliac vein. 2. The femoral veins are not well opacified with contrast and their patency cannot be evaluated. A lower extremity venous ultrasound is recommended for evaluation of the right and left femoral veins. 3. No arterial stenosis is identified. Findings were discussed with Nurse Norman at 04/13/2018 10:44 PM who verbalized understanding. [facility]-[id number] Performing Organization Address City/State/[facility] Phone Number [facility] [address] [place] [address] * CTA Abdomen Pelvis W And Or Wo Contrast (08/21/2017 9:56 AM) Narrative Performed At EXAMINATION:CT ANGIOGRAM ABDOMEN PELVIS W AND OR WO CONTRAST [facility] CLINICAL HISTORY:I82.5Y3 Chronic embolism and thrombosis of unspecified deep veins of proximal lower extremitybilateral, CTA abd pel w wo contrast s p Venogram w cavogram Angiojet thrombectomy of Rt CIV & CIVPTa & stenting both CIV & EIV 4 7 17 TECHNIQUE: Multiple CT angiographic images of the abdomen and pelvis were obtained pre-, post, and post delayed intravenous administration of contrast. Multiple computerized reformatted images as well as 3-D volume rendered images were also obtained. CT imaging was performed with iterative reconstruction techniques and/or automated exposure control to reduce radiation dose. COMPARISON:None. FINDINGS: No radiopaque nephroliths are identified. Multiple vascular stents are noted within the IVC extending into the bilateral common iliac veins and extending into the left external iliac vein as well. With delayed imaging, contrast does appear to opacify the lumens of the stents indicating patency. Minimal adherent in-stent thrombus may be present though difficult to visualize with this modality. Contrast is also seen within the unstented portion of the IVC extending into the right atrium. The remainder of the visualized aspects of the lung bases, liver, stomach, pancreas, adrenals, kidneys, spleen, gallbladder, GI tract, bony and soft tissue structures is unremarkable, apart from degenerative changes of the spine. IMPRESSION: Patent IVC and iliac stents as described above. 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 Multiple computerized reformatted images as well as 3-D volume rendered images were also obtained. CT imaging was performed with iterative reconstruction techniques and/or automated exposure control to reduce radiation dose. COMPARISON: None. FINDINGS: No radiopaque nephroliths are identified. Multiple vascular stents are noted within the IVC extending into the bilateral common iliac veins and extending into the left external iliac vein as well. With delayed imaging, contrast does appear to opacify the lumens of the stents indicating patency. Minimal adherent in-stent thrombus may be present though difficult to visualize with this modality. Contrast is also seen within the unstented portion of the IVC extending into the right atrium. The remainder of the visualized aspects of the lung bases, liver, stomach, pancreas, adrenals, kidneys, spleen, gallbladder, GI tract, bony and soft tissue structures is unremarkable, apart from degenerative changes of the spine. IMPRESSION: Patent IVC and iliac stents as described above. [facility]-[id number] Performing Organization Address City/State/Zipcode Phone Number [facility] [address] [place] [address] * Creatinine level (08/21/2017 8:26 AM) Creatinine 1.1Comment: Testing performed 0.7 - 1.2 mg/dL [facility] DEPARTMENT OF on the ISTAT instrument by RN PATHOLOGY AND Tech [id number] GENOMIC MEDICINE Specimen Plasma specimen Performing Organization Address City/State/Zipcode Phone Number [facility] DEPARTMENT OF [address] [place] [address] PATHOLOGY AND GENOMIC MEDICINE after 08/05/2017 Insurance Payer Benefit Subscriber ID Type Phone Address Plan / Group AETNA AETNA xxxxxxxxxx HMO HMO,POS,EP O, [facility] Home:
--- OUTSIDE RECORDS SUMMARY | 2018-08-11 12:56 | XMS REPORT ---
Author Author [facility] Address Unknown Phone Unavailable Care Team Providers Care [employer]ified [employer] Specialist Name Role Phone Esdras BERGERON Unavailable Unavailable Problems This patient has no known problems. Allergies, Adverse Reactions, Alerts This patient has no known allergies or adverse reactions. Medications This patient has no known medications. Results Test Description Test Time Test Comments Text Results Atomic Results Result Comments CHEST 2 VIEWS 2018-08-03 09:42:00 [place] [address] Patient Name: LINDSEY MATAMOROS MR #: [id number] : 1970 Age/Sex: 47/M Req #: [id number] Adm Physician: Ordered by: SUSAN BERGERON MD Report #: [id number] Location: OR Room/Bed: Procedure: [id number] DX/CHEST 2 VIEWS Exam Date: 08/03/18 Exam Time: 914 REPORT STATUS: Signed PROCEDURE: X-RAY CHEST, TWO VIEWS COMPARISON: None. INDICATIONS: PREOPERATIVE CHEST XRAY FOR VASECTOMY FINDINGS: Lungs are well- inflated. No focal consolidation, pleural effusion, or pneumothorax. Cardiomediastinal contour and pulmonary vasculature are within normal limits. No acute osseous abnormality. CONCLUSION: No acute thoracic abnormality. Dictated by: iVjay Hartley M.D. on 08/03/2018 at 9:42 Electronically approved by: Vijay Hartley M.D. on 08/03/2018 at 9:42 Dictated By: VIJAY HARTLEY MD 1 Transcribed By: JUICE on 08/03/18941 COPY TO: SUSAN BERGERON MD
== END | disposition home or self-care (01) ==
LOC: OR 07:04
PROVIDERS: ATTEND Urology
DX: Z30.2 Encounter for sterilization (principal); R00.1 Bradycardia, unspecified; Z88.2 Allergy status to sulfonamides; Z88.9 Allergy status to unspecified drugs, medicaments and biological substances; Z91.040 Latex allergy status; Z01.810 Encounter for preprocedural cardiovascular examination; Z01.812 Encounter for preprocedural laboratory examination; Z01.818 Encounter for other preprocedural examination; Z79.02 Long term (current) use of antithrombotics/antiplatelets; Z86.711 Personal history of pulmonary embolism; Z86.718 Personal history of other venous thrombosis and embolism
CPT/HCPCS: 36415; 55250; 71046; 85025; 85610; 85730; 88302; 93005; J0696; J1100; J2001; J2250; J2405